=== PATIENT | male | born 1990 | race Two or more races ===

== ENCOUNTER 2024-11-28 10:32 | Inpatient (IN) | payer BC, OTHER ==
[~2024-11-28] VITALS: Ht 170.2 cm; Wt 98.0 kg
--- NOTE | 2024-11-28 10:44 | ECG ---
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
--- NOTE | 2024-11-28 10:48 | ED.PDOC ---
HPI Comments This is a 34 year old male presenting to the ED with chief complaint of chest pain. Patient reports that he has been experiencing pressure-like pain across his chest with associated subjective fever and diaphoresis for the past few days. Patient relays that his pain is not changed by palpation or inspiration. Patient denies any SOB, cough, dizziness, headache, N/V, numbness, or weakness. Chief Complaint: Chest Pain Time Seen by MD: 10:45 Reviewed Notes: Nurses Notes, Medications, Allergies Allergies: Coded Allergies: NO KNOWN ALLERGIES (Unverified , 11/28/24) Information Source: Patient Mode of Arrival: Ambulatory Severity: Moderate Timing: Days Duration: Since onset Prehospital treatment: None Location: Chest (R), Chest (L) Radiation: No Radiation Quality: Pressure Onset: At Rest Cardiac Risk Factors: Smoker PE Risk Factors: None History of: None Associated Signs and Symptoms: Diaphoresis Past Medical History PAST MEDICAL HISTORY: Denies Surgical History: Denies all surgeries Family History Family History: Reviewed,noncontributory to illness Social History Smoker: Quit Less Than 1 Year, Cigarettes Alcohol: Denies ETOH Use Drugs: Denies Drug Use Lives In: Home Constitutional: reports: fever; denies: chills, diaphoresis, fatigue, malaise, sweats, weakness, others EENTM: denies: blurred vision, double vision, ear bleeding, ear discharge, ear drainage, ear pain, ear ringing, eye pain, eye redness, hearing loss, mouth pain, mouth swelling, nasal discharge, nose bleeding, nose congestion, nose pain, photophobia, tearing, throat pain, throat swelling, voice changes, others Respiratory: denies: cough, hemoptysis, orthopnea, SOB at rest, shortness of breath, SOB with excertion, stridor, wheezing, others Cardiovascular: reports: chest pain, diaphoresis; denies: dizzy spells, Dyspnea on exertion, edema, irregular heart beat, left arm pain, lightheadedness, palpitations, PND, syncope, others Gastrointestinal: denies: abdomen distended, abdominal pain, blood streaked bowels, constipated, diarrhea, dysphagia, difficulty swallowing, hematemesis, melena, nausea, poor appetite, poor fluid intake, rectal bleeding, rectal pain, vomiting, others Genitourinary: denies: burning, dysuria, flank pain, frequency, hematuria, incontinence, penile discharge, penile sore, pain, testicle pain, testicle swelling, urgency, others Neurological: denies: dizziness, fainting, headache, left sided numbness, left sided weakness, numbness, paresthesia, pre-existing deficit, right sided numbness, right sided weakness, seizure, speech problems, tingling, tremors, weakness, others Musculoskeletal: denies: back pain, gout, joint pain, joint swelling, muscle pain, muscle stiffness, neck pain, others Integumetry: denies: bruises, change in color, change in hair/nails, dryness, laceration, lesions, lumps, rash, wounds, others Allergic/Immunocompromised: denies: Difficulty Healing, Frequent Infections, Hives, Itching, others Hematologic/Lymphatic: denies: anemia, blood clots, easy bleeding, easy bruising, swollen glands, others Endocrine: denies: excessive hunger, excessive sweating, excessive thirst, excessive urination, flushing, intolerance to cold, intolerance to heat, unexplained weight gain, unexplained weight loss, others Psychiatric: denies: anxiety, bipolar disorder, depression, hopeless, panic disorder, schizophrenia, sleepless, suicidal, others All Other Systems: Reviewed and Negative Physical Exam General Appearance: No Apparent Distress, Normal HEENT: Normal ENT Inspection, Pharynx Normal, TMs Normal Neck: Full Range of Motion, Non-Tender, Normal, Normal Inspection Respiratory: Chest Non-Tender, Lungs Clear, No Accessory Muscle Use, No Respiratory Distress, Normal Breath Sounds Cardiovascular: No Edema, No JVD, No Murmur, No Gallop, Normal Peripheral Pulses, Regular Rate/Rhythm Breast Exam: Deferred Gastrointestinal: No Organomegaly, Non Tender, No Pulsatile Mass, Normal Bowel Sounds, Soft Genitalia: Deferred Pelvic: Deferred Rectal: Deferred Extremities: No calf tenderness, Normal capillary refill, Normal inspection, Normal range of motion, Non-tender, No pedal edema Musculoskeletal : Apperance: Normal Neurologic: Alert, head soft sugar operator II-XII nml as Tested, No Motor Deficits, Normal Affect, Normal Mood, No Sensory Deficits Cerebellar Function: Normal Reflexes: Normal Skin: Diaphoresis, Normal Color, Warm Lymphatic: No Adenopathy EKG EKG : Pulse Rate (adult): 88 Joice: Normal Cardiac Rhythm: NSR Was a procedure done? Was a procedure done?: No CP Differential Dx Differential Diagnosis: Other Differential Diagnosis: Other Differential Diagnosis: Angina, Aortic dissection, Chest Wall Pain, Cholelithiasis, Costochondritis, Esophageal reflux/spasm, Gastritis, Myocardial Infarction, Pericarditis, Pneumonia, Pneumothorax, Pulmonary Embolus X-Ray, Labs, Meds, VS Vital Signs Date Time Temp Pulse Resp B/P (MAP) Pulse Ox O2 Delivery O2 Flow Rate FiO2 11/28/24 11:42 94 11/28/24 11:12 Room Air* 0 21 11/28/24 10:48 88 11/28/24 10:39 88 11/28/24 10:36 98.5 100 16 120/77 100 98.5 Lab Test 11/28/24 12:18 11/28/24 10:40 Range/Units Troponin I High Sensitivity Pending < 3 L </=54 ng/L White Blood Count 6.0 4.4-10.8 10^3/uL Red Blood Count 5.46 4.5-5.90 10^6/uL Hemoglobin 15.8 13.5-17.5 g/dL Hematocrit 46.4 41.0-53.0 % Mean Corpuscular Volume 85.0 80.0-100.0 fL Mean Corpuscular Hemoglobin 29.0 28.0-32.0 pg Mean Corpuscular Hemoglobin Concent 34.1 32.0-36.0 g/dL Red Cell Distribution Width 13.5 11.8-14.3 % Platelet Count 264 140-450 10^3/uL Mean Platelet Volume 7.3 6.9-10.8 fL Neutrophils (%) (Auto) 68.6 37.0-80.0 % Lymphocytes (%) (Auto) 15.5 10.0-50.0 % Monocytes (%) (Auto) 15.0 H 0.0-12.0 % Eosinophils (%) (Auto) 0.4 0.0-7.0 % Basophils (%) (Auto) 0.5 0.0-2.0 % Neutrophils # (Auto) 4.1 1.6-8.6 10 ^3/uL Lymphocytes # (Auto) 0.9 0.4-5.4 10 ^3/uL Monocytes # (Auto) 0.9 0-1.3 10 ^3/uL Eosinophils # (Auto) 0 0-0.8 10 ^3/uL Basophils # (Auto) 0 0-0.2 10 ^3/uL Nucleated Red Blood Cells 0.2 % Sodium Level 140 136-145 mmol/L Potassium Level 4.2 3.5-5.1 mmol/L Chloride Level 102 98-107 mmol/L Carbon Dioxide Level 29 20-31 mmol/L Anion Gap 9 5-15 Blood Urea Nitrogen 16 9-23 mg/dL Creatinine 1.07 0.700-1.30 mg/dL Glomerular Filtration Rate Calc 93 >90 mL/min BUN/Creatinine Ratio 15.0 10.0-20.0 Serum Glucose 122 H 74-106 mg/dL Calcium Level 9.5 8.7-10.4 mg/dL Current Medications Medications (Trade) Dose Ordered Sig/Tea Route Start Time Stop Time Status Last Admin Aspirin 162 mg ONCE ONCE PO 11/28/24 10:45 11/28/24 10:46 DC 11/28/24 11:09 Time of 1ST Reevaluation: 11:45 Reevaluation 1ST: Unchanged Patient Education/Counseling: Diagnosis, Treatment Family Education/Counseling: No Family Present Comments Although the patient has a low heart score of only one, his symptoms are concerning for angina. Patient will be admitted for further evaluation Additional Information Reviewed patient's previous visit(s): None The following tests were ordered, and results were reviewed by me: CBC, BMP, Troponin, EKG Additional information was gathered from interviewing the following independent historian: None I reviewed and agreed with the following test results read by other provider: Chest XR I discussed treatments and results with medical personnel and: PATIENT Comprehensive systems review obtained and negative except for what is stated in the HPI. SEPSIS Sepsis Screen Date sepsis recognized/suspect: Nov 28, 2024 Time Sepsis recognized/suspect: 1038 Recent Procedure: No On Antibiotic Therapy: No Respiratory Rate >20: No Heart Rate >90: Yes Temp<36 C (96.8 F) or >38.3 C: No SBP <90 or MAP <65 mmHG: No New Acute Mental Status Change: No Is the patient on CPAP, BIPAP,: No Physician Orders Electrocardigram (11/28/24 13:43) Chest Xray 1 View (11/28/24 10:44) Continuous Ekg Monitoring 08,12,16,20,00,04 (11/28/24 10:44) Troponin-I Hs (11/28/24 11:44) Troponin-I Hs (11/28/24 13:44) Vital Signs Date Time Temp Pulse Resp B/P (MAP) Pulse Ox O2 Delivery O2 Flow Rate FiO2 11/28/24 11:42 94 11/28/24 11:12 Room Air* 0 21 11/28/24 10:48 88 11/28/24 10:39 88 11/28/24 10:36 98.5 100 16 120/77 100 98.5 Laboratory Tests Test 11/28/24 10:40 White Blood Count 6.0 10^3/uL (4.4-10.8) Medications Medications Dose Ordered Sig/Tea Route Start Time Stop Time Status Last Admin Dose Admin Aspirin 162 mg ONCE ONCE PO 11/28/24 10:45 11/28/24 10:46 DC 11/28/24 11:09 Departure 1 Departure Time of Disposition: 12:41 Impression: Primary Impression: Unstable angina Disposition: ADMITTED INPATIENT Admit to: Tele Condition: Stable Critical Care Note Critical Care Time?: Yes (55 min-critical care time only) Critical care comment: due to concerns for patient's condition deteriorating, the care required my highest level of attention and readiness to intervene. i assessed the patient's condition, ordered the proper tests and treatments, reassessed for response and reviewed the results. i communicated with medical personnel and formulated a plan of care. total critical care time does not include any procedures Stability Stability form required: No Heart Score Heart Score: Heart Score Response (Comments) Value History Moderate Suspicious 1 EKG Normal 0 Age <45 0 Risk Factors No known risk factors 0 Troponin Normal limit 0 Total 1 I personally scribed for LIZZIE HERNANDEZ MD ([email or web address]) on 11/28/24 at 10:48. Electronically submitted by Antoni Fraire ([email or web address]). LIZZIE HERNANDEZ MD Nov 28, 2024 10:48
[2024-11-28 11:01] LABS: Hematocrit 46.4 % (41.0-53.0); Hemoglobin 15.8 g/dL (13.5-17.5); Mean Corpuscular Hemoglobin 29.0 pg (28.0-32.0); Mean Corpuscular Volume 85.0 fL (80.0-100.0); Nucleated Red Blood Cells % 0.2 %
[2024-11-28 11:11] LABS: Chloride 102 mmol/L (98-107); Potassium 4.2 mmol/L (3.5-5.1); Sodium 140 mmol/L (136-145)
--- NOTE | 2024-11-28 11:11 | DVH ---
EXAM: XY CHEST XRAY 1 VIEW Indication: cp Technique: Single frontal view of the chest was obtained Comparison: None FINDINGS: Lines and Tubes: None Lungs: No focal consolidation. Pleura: No effusion. No pneumothorax. Cardiomediastinal contours: Unremarkable Bones: No acute osseous abnormality. IMPRESSION: No acute cardiopulmonary disease.
[2024-11-28 11:12] LABS: Anion Gap 9 (5-15); Calcium 9.5 mg/dL (8.7-10.4); Carbon Dioxide 29 mmol/L (20-31)
[2024-11-28 11:17] LABS: BUN/Creatinine Ratio 15.0 (10.0-20.0); Blood Urea Nitrogen 16 mg/dL (9-23)
[2024-11-28 11:23] LABS: Glucose 122 mg/dL (74-106)
--- NOTE | 2024-11-28 11:44 | ECG ---
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
[2024-11-28] MEDS ORDERED: TEMAZEPAM 15 MG CAP PO PRN ×2 (14:00→22:00)
[2024-11-28] MEDS ORDERED: ONDANSETRON HCL 4 MG/2 ML VIAL IV PRN (14:00)
[2024-11-28] MEDS ORDERED: MORPHINE SULFATE INJ 2 MG/ml SYRG IV PRN (14:00)
[2024-11-28] MEDS ORDERED: ACETAMINOPHEN 325 MG TAB PO PRN (14:00)
[2024-11-28] MEDS ORDERED: HYDROcodone-ACET 5/325MG TAB PO PRN (14:00)
[2024-11-28] MEDS ORDERED: DOCUSATE SOD 100 MG CAP PO PRN (14:00)
[2024-11-28] MEDS ORDERED: NITROGLYCERIN 0.4 MG SL TAB SL PRN (14:00)
[2024-11-28] MEDS: SODIUM CHLOR 0.9% PF (SALINE LOCK) 10ML VIAL/SYR IV SCH (14:23)
--- NOTE | 2024-11-28 15:26 | DVHHP2 ---
History of Present Illness Reason for Visit: Chest pain History of Present Illness Jani Vasquez is a 34-year old male with no significant past medical history who came to the hospital for chest pain. Patient states his chest pain began about a week ago. It started on the right side of his chest and now is across his entire chest. States it feels heavy when he breaths. Patient did quite smoking about 1 month ago, denies any cough at this time. Past Surgical History: Hernia Repair Smoke: Quit (1 month ago) ALCOHOL: none Drugs: None Lives: with Family Domestic Violence: Neg Review of Systems Constitutional: No: Fever, Chills, Sweats, Weakness, Malaise, Other Eyes: No: Pain, Vision change, Conjunctivae inflammation, Eyelid inflammation, Other, Redness ENT: No: Ear pain, Ear discharge, Nose pain, Nose discharge, Nose congestion, Mouth pain, Mouth swelling, Throat pain, Throat swelling, Other Respiratory: No: Cough, Dry, Shortness of breath, SOB with excertion, Wheezing, Hemoptysis, Pleuritic Pain, Sputum, Wheezing, Other Cardiovascular: Chest Pain (Started on the right side of his chest and radiates to left. Feels heavy when he breaths); No: Palpitations, Orthopnea, Paroxysmal Noc. Dyspnea, Edema, Lt Headedness, Other Gastrointestinal: No: Nausea, Vomiting, Abdominal Pain, Diarrhea, Constipation, Melena, Hematochezia, Other Genitourinary: No Dysuria, No Frequency, No Incontinence, No Hematuria, No Retention, No Other Musculoskeletal: No: other, neck pain, shoulder pain, arm pain, back pain, hand pain, leg pain, foot pain Skin: No: Rash, Lesions, Jaundice, Bruising, Other Neurological: No: Weakness, Numbness, Incoordination, Change in speech, Confusion, Seizures, Other Allergies: Coded Allergies: NO KNOWN ALLERGIES (Unverified , 11/28/24) Medications Current Medications Medications Dose Ordered Sig/Tea Route Start Time Stop Time Status Last Admin Dose Admin Sodium Chloride 10 ml Q8HR IV 11/28/24 14:00 UNV Acetaminophen/ Hydrocodone Bitart 1 tab Q4HP PRN PO 11/28/24 14:00 UNV Temazepam 15 mg QHSP PRN PO 11/28/24 14:00 UNV Ondansetron HCl 4 mg Q4HP PRN IV 11/28/24 14:00 UNV Docusate Sodium 100 mg BIDPRN PRN PO 11/28/24 14:00 UNV Acetaminophen 650 mg Q6HP PRN PO 11/28/24 14:00 UNV Nitroglycerin 0.4 mg Q5MINP PRN SL 11/28/24 14:00 UNV Morphine Sulfate 2 mg Q30M PRN IV 11/28/24 14:00 UNV Exam Vital Signs Vital Signs Date Time Temp Pulse Resp B/P (MAP) Pulse Ox O2 Delivery O2 Flow Rate FiO2 11/28/24 11:42 94 11/28/24 11:12 Room Air* 0 21 11/28/24 10:36 98.5 16 120/77 100 98.5 General Appearance: Alert, Oriented X3, Cooperative, mild distress HEENT: Atraumatic, PERRLA Respiratory: Clear to auscultation, Normal air movement Cardiovascular: Regular rate, Normal S1, Normal S2, No murmurs Abdominal: Normal bowel sounds, Soft, No tenderness Extremities: No clubbing, No edema Skin: No rashes, No breakdown, No significant lesion Neuro: Normal gait, Normal speech, Strength at 5/5 X4 ext, Normal tone Psych/Mental Status: Mental status NL, Mood NL Labs/Xrays Labs Test 11/28/24 12:18 11/28/24 10:40 Range/Units Troponin I High Sensitivity < 3 L </=54 ng/L White Blood Count 6.0 4.4-10.8 10^3/uL Red Blood Count 5.46 4.5-5.90 10^6/uL Hemoglobin 15.8 13.5-17.5 g/dL Hematocrit 46.4 41.0-53.0 % Mean Corpuscular Volume 85.0 80.0-100.0 fL Mean Corpuscular Hemoglobin 29.0 28.0-32.0 pg Mean Corpuscular Hemoglobin Concent 34.1 32.0-36.0 g/dL Red Cell Distribution Width 13.5 11.8-14.3 % Platelet Count 264 140-450 10^3/uL Mean Platelet Volume 7.3 6.9-10.8 fL Neutrophils (%) (Auto) 68.6 37.0-80.0 % Lymphocytes (%) (Auto) 15.5 10.0-50.0 % Monocytes (%) (Auto) 15.0 H 0.0-12.0 % Eosinophils (%) (Auto) 0.4 0.0-7.0 % Basophils (%) (Auto) 0.5 0.0-2.0 % Neutrophils # (Auto) 4.1 1.6-8.6 10 ^3/uL Lymphocytes # (Auto) 0.9 0.4-5.4 10 ^3/uL Monocytes # (Auto) 0.9 0-1.3 10 ^3/uL Eosinophils # (Auto) 0 0-0.8 10 ^3/uL Basophils # (Auto) 0 0-0.2 10 ^3/uL Nucleated Red Blood Cells 0.2 % Sodium Level 140 136-145 mmol/L Potassium Level 4.2 3.5-5.1 mmol/L Chloride Level 102 98-107 mmol/L Carbon Dioxide Level 29 20-31 mmol/L Anion Gap 9 5-15 Blood Urea Nitrogen 16 9-23 mg/dL Creatinine 1.07 0.700-1.30 mg/dL Glomerular Filtration Rate Calc 93 >90 mL/min BUN/Creatinine Ratio 15.0 10.0-20.0 Serum Glucose 122 H 74-106 mg/dL Calcium Level 9.5 8.7-10.4 mg/dL EXAM: XY CHEST XRAY 1 VIEW FINDINGS: Lines and Tubes: None Lungs: No focal consolidation. Pleura: No effusion. No pneumothorax. Cardiomediastinal contours: Unremarkable Bones: No acute osseous abnormality. IMPRESSION: No acute cardiopulmonary disease. SEPSIS Sepsis Screen Date sepsis recognized/suspect: Nov 28, 2024 Time Sepsis recognized/suspect: 1038 Recent Procedure: No On Antibiotic Therapy: No Respiratory Rate >20: No Heart Rate >90: Yes Temp<36 C (96.8 F) or >38.3 C: No SBP <90 or MAP <65 mmHG: No New Acute Mental Status Change: No Is the patient on CPAP, BIPAP,: No Physician Orders Electrocardigram (11/28/24 13:43) Chest Xray 1 View (11/28/24 10:44) Continuous Ekg Monitoring 08,12,16,20,00,04 (11/28/24 10:44) Troponin-I Hs (11/28/24 13:44) Admit (11/28/24 13:56) Code Status (11/28/24 13:56) 2 Gm Sodium Diet (11/28/24 Dinner) Sodium Chloride Lock (Saline Lock Ns) (11/28/24 14:00) Hydrocodone-Acet 5/325mg Tab ([place] 5/32 (11/28/24 14:00) Temazepam (Restoril) (11/28/24 14:00) Ondansetron Hcl (Zofran) (11/28/24 14:00) Docusate Sodium Capsule (Colace Capsule) (11/28/24 14:00) Complete Blood Count (11/29/24 04:00) Comprehensive Metabolic Panel (11/29/24 04:00) Echo 2d Mode Cardiac Dop (11/28/24 13:56) Condition: Serious (11/28/24 13:56) Acetaminophen Tablet (Tylenol Tablet) (11/28/24 14:00) Nitroglycerin Sublingual (Ntrostat Subli (11/28/24 14:00) Morphine Sulfate Injection (11/28/24 14:00) Stat Ekg For Chest Pain (11/28/24 13:56) Notify Md Of Changes From Base (11/28/24 13:56) Orthotist For 24 Hours (11/28/24 13:56) Emergency Dysrhythmia Protocol (11/28/24 13:56) Rhythm Strips Once Every Shift (11/28/24 13:56) Oxygen By Nasal Cannula (11/28/24 13:56) Vital Signs Date Time Temp Pulse Resp B/P (MAP) Pulse Ox O2 Delivery O2 Flow Rate FiO2 11/28/24 11:42 94 11/28/24 11:12 Room Air* 0 21 11/28/24 10:48 88 11/28/24 10:39 88 11/28/24 10:36 98.5 100 16 120/77 100 98.5 Laboratory Tests Test 11/28/24 10:40 White Blood Count 6.0 10^3/uL (4.4-10.8) Medications Medications Dose Ordered Sig/Tea Route Start Time Stop Time Status Last Admin Dose Admin Aspirin 162 mg ONCE ONCE PO 11/28/24 10:45 11/28/24 10:46 DC 11/28/24 11:09 162 MG Assessment/Plan Assessment/Plan Assessment: Unstable angina, Hyperglycemia, Plan: Admit to Tele, ECHO, Consider cardiology consult based on ECHO results and if symptoms worsen, D-dimer, TSH, Lipid panel, A1c, Plan discussed with: Patient My Orders Orders - MIKE ARNETT Procedure Category Date Status Time Admit ADMIT 11/28/24 Transmitted 13:56 Code Status CODE 11/28/24 Transmitted 13:56 2 Gm Sodium Diet DIET 11/28/24 Transmitted Dinner Sodium Chloride Lock PHA 11/28/24 Logged (Saline Lock Ns) 14:00 Hydrocodone-Acet PHA 11/28/24 Logged 5/325mg Tab ([place] 14:00 Temazepam (Restoril) PHA 11/28/24 Logged 14:00 Ondansetron Hcl PHA 11/28/24 Logged (Zofran) 14:00 Docusate Sodium PHA 11/28/24 Logged Capsule (Colace 14:00 Complete Blood Count LAB 11/29/24 Verified 04:00 Comprehensive LAB 11/29/24 Verified Metabolic Panel 04:00 Echo 2d Mode Cardiac US 11/28/24 Logged DOP 13:56 Condition: Serious DARRON 11/28/24 In Process 13:56 Acetaminophen Tablet PHA 11/28/24 Logged (Tylenol Tablet) 14:00 Nitroglycerin PHA 11/28/24 Logged Sublingual (Ntrostat 14:00 Morphine Sulfate PHA 11/28/24 Logged Injection 14:00 Stat Ekg For Chest DARRON 11/28/24 In Process Pain 13:56 Notify Md Of Changes D[place]ON 11/28/24 In Process From Base 13:56 Orthotist For DARRON 11/28/24 In Process 24 Hours 13:56 Emergency Dysrhythmia DARRON 11/28/24 In Process Protocol 13:56 Rhythm Strips Once DARRON 11/28/24 In Process Every Shift 13:56 Oxygen By Nasal RT 11/28/24 Transmitted Cannula 13:56 Date of Service: Nov 28, 2024 Billing Provider: MIKE ARNETT Common Visit Codes: 40202-OCRZYPT INP/OBS CARE (MOD) MIKE ARNETT Nov 28, 2024 15:26
[2024-11-28 17:00] VITALS: BP 133/85; PULSE 81; RESP 22; TEMP 98.4; O2SAT 99
[2024-11-28 21:00] VITALS: BP 104/71; PULSE 79; RESP 16; TEMP 98; O2SAT 98
[2024-11-28 22:10] VITALS: PULSE 72; RESP 18; O2SAT 98
[2024-11-29] VITALS (8 sets, daily range): BP systolic 104–126; BP diastolic 69–87; PULSE 65–86; RESP 18–20; TEMP 97.5–98.3; O2SAT 94–100
[2024-11-29 07:13] LABS: Hematocrit 45.2 % (41.0-53.0); Hemoglobin 15.5 g/dL (13.5-17.5); Mean Corpuscular Hemoglobin 29.5 pg (28.0-32.0); Mean Corpuscular Volume 85.8 fL (80.0-100.0); Nucleated Red Blood Cells % 0.2 %
[2024-11-29 07:33] LABS: Alanine Aminotransferase 16 U/L (7-40); Alkaline Phosphatase 74 U/L (46-116); Anion Gap 10 (5-15); BUN/Creatinine Ratio 11.0 (10.0-20.0); Blood Urea Nitrogen 9 mg/dL (9-23); Calcium 9.0 mg/dL (8.7-10.4); Carbon Dioxide 24 mmol/L (20-31); Chloride 105 mmol/L (98-107); Glucose 88 mg/dL (74-106); Potassium 4.3 mmol/L (3.5-5.1); Sodium 139 mmol/L (136-145); Total Protein 7.4 g/dL (5.7-8.2)
[2024-11-29 07:35] LABS: Albumin 4.7 g/dL (3.2-4.8); Bilirubin, Total 0.5 mg/dL (0.2-1.0)
[2024-11-29 10:39] LABS: Triglycerides 112 mg/dL (< 150)
[2024-11-29 10:41] LABS: Cholesterol 159 mg/dL (< 200); HDL Cholesterol 36 mg/dL (40-59)
--- NOTE | 2024-11-29 17:55 | DVHPN2 ---
Eyes: No Pain, No Vision change, No Conjunctivae inflammation, No Eyelid inflammation, No Other, No Redness ENT: No Ear pain, No Ear discharge, No Nose pain, No Nose discharge, No Nose congestion, No Mouth pain, No Mouth swelling, No Throat pain, No Throat swelling, No Other Cardiovascular: Chest Pain (Started on the right side of his chest and radiates to left. Feels heavy when he breaths); No Palpitations, No Orthopnea, No Paroxysmal Noc. Dyspnea, No Edema, No Lt Headedness, No Other Respiratory: No Cough, No Dry, No Shortness of breath, No SOB with excertion, No Wheezing, No Hemoptysis, No Pleuritic Pain, No Sputum, No Other Gastrointestinal: No Nausea, No Vomiting, No Abdominal Pain, No Diarrhea, No Constipation, No Melena, No Hematochezia, No Other Genitourinary: No Dysuria, No Frequency, No Incontinence, No Hematuria, No Retention, No Other Musculoskeletal: No other, No neck pain, No shoulder pain, No arm pain, No back pain, No hand pain, No leg pain, No foot pain Skin: No Rash, No Lesions, No Jaundice, No Bruising, No Other Objective Vitals Vital Signs Date Time Temp Pulse Resp B/P (MAP) Pulse Ox O2 Delivery O2 Flow Rate FiO2 11/29/24 13:00 98.1 86 20 117/83 (94) 96 98.1 11/29/24 08:00 Room Air* 0 21 Intake/Output Intake and Output 11/29/24 07:00 Intake Total 940 ml Balance 940 ml Intake Oral 940 ml # Voids 1 Medications Current Medications Medications Dose Ordered Sig/Tea Route Start Time Stop Time Status Last Admin Dose Admin Sodium Chloride 10 ml Q8HR IV 11/28/24 14:00 11/29/24 05:26 10 ML Acetaminophen/ Hydrocodone Bitart 1 tab Q4HP PRN PO 11/28/24 14:00 Ondansetron HCl 4 mg Q4HP PRN IV 11/28/24 14:00 Docusate Sodium 100 mg BIDPRN PRN PO 11/28/24 14:00 Acetaminophen 650 mg Q6HP PRN PO 11/28/24 14:00 Nitroglycerin 0.4 mg Q5MINP PRN SL 11/28/24 14:00 Morphine Sulfate 2 mg Q30M PRN IV 11/28/24 14:00 Temazepam 15 mg QHSP PRN PO 11/28/24 22:00 Laboratory Results Laboratory Tests 11/29/24 06:23 Chemistry Test 11/29/24 06:23 Albumin 4.7 g/dL (3.2-4.8) Calcium Level 9.0 mg/dL (8.7-10.4) Total Protein 7.4 g/dL (5.7-8.2) Lipid panel Test 11/29/24 10:15 Cholesterol Level 159 mg/dL (< 200) HDL Cholesterol 36 mg/dL (40-59) L Triglycerides Level 112 mg/dL (< 150) LFT Test 11/29/24 06:23 Alanine Aminotransferase (ALT) 16 U/L (7-40) Alkaline Phosphatase 74 U/L (46-116) Aspartate Amino Transferase (AST) 21 U/L (13-40) Total Bilirubin 0.5 mg/dL (0.2-1.0) HgA1c, TSH Test 11/29/24 10:15 Hemoglobin A1c 5.4 % A1C (<5.7) Thyroid Stimulating Hormone (TSH) 1.55 uIU/mL (0.55-4.78) Assessment/Plan My Orders Orders - NU BURKETT MD Procedure Category Date Status Time * Cardiology Consult CONS 11/29/24 Transmitted 15:57 NU BURKETT MD Nov 29, 2024 17:55
[2024-11-30 05:00] VITALS: BP 107/69; PULSE 86; RESP 18; TEMP 97.9; O2SAT 95
[2024-11-30 08:00] VITALS: PULSE 76
[2024-11-30 09:00] VITALS: BP 117/75; PULSE 96; RESP 18; TEMP 97.7; O2SAT 97
--- NOTE | 2024-11-30 09:39 | DVHSR ---
APPROVED REPORT EXAM: Two-dimensional and M-mode echocardiogram with Doppler and color Doppler. Blood Pressure: 118/80 mmHg INDICATION unstable angina RISK FACTORS Height: 5'8, Weight: 226 DIMENSIONS LVDd4.8 (3.8-5.7cm)LA (2D)3.6 (1.9-4.0cm)Aortic Root3.6 (2.0-3.7cm) LVDs2.7 (2.5-4.0cm)LA (MM) (1.9-4.0cm)Aortic Cusp Exc2.3 (1.5-2.0cm) EF (%) 60.0 (55-70%)Rt. Atrium3.3 (1.9-4.0cm)Asc. Aorta3.6 cm IVSd1.0 (0.7-1.1cm)RV (D) (1.8-2.4cm) PWd0.9 (0.7-1.1cm) Mitral Valve MitralMitral Stenosis E wave0.57m/sMV Mean GR.mmHg A wave0.70m/sMV Peak GR.mmHg E/A ratio0.82D MVAcm2 DECEL [id number] 1/2 Timems Aortic Valve Aortic ValveAortic Stenosis V10.80m/Mayuri Mean GR.mmHg V20.85m/Mayuri Peak GR.3mmHg LVOT Diameter2.5 (1.8-2.4cm)Doppler AVA4.62cm2 Pulmonic Valve V20.83m/s Tricuspid Valve TR Velocity1.62m/s [id number] Conclusion LV EF IS 70% NORMAL VALVES NORMAL RV FUNCTION NO EFFUSION
[2024-11-30 09:50] LABS: Cannabinoid Screen, Urine Pos (NEGATIVE)
[2024-11-30 09:51] LABS: Amphetamine Screen, Urine Neg (NEGATIVE); Barbiturate Scree,Urine Neg (NEGATIVE); Benzodiazephine Screen, Urine Neg (NEGATIVE); Cocaine Screen, Urine Neg (NEGATIVE); Opiate Scree,Urine Neg (NEGATIVE); Phencyclidine Screen, Urine Neg (NEGATIVE)
--- NOTE | 2024-11-30 11:54 | DVHINCON2 ---
Date Seen: Nov 30, 2024 Referring Physician MD Angélica Reason for Consultation Chest pain History of Present Illness This is a 34-year-old male patient who presents to the emergency room with chief complaint of chest pain. The patient reports that the chest pain began approximately one week ago while he was at work. He states that he was lifting a heavy piece of wooden material over his head when suddenly he began to feel right-sided chest pain. He describes it as provoked with movement, intermittent, sore in nature, and right-sided without radiation. He denies any associated symptoms. He decided to come to the emergency room for further evaluation. Initial twelve lead electrocardiogram reveals normal sinus rhythm without any significant ST segment changes. Troponin levels have been negative. The patient denies any previous medical history. The patient also denies any significant family cardiac history. Past Medical History Denies any past medical history Past Surgical History Hernia repair Family History: Patient reports no known family medical history. Family History Family history reviewed. Social History Admits to occasional marijuana use, denies other illicit drugs Denies nicotine or tobacco use Denies alcohol use Allergies: Coded Allergies: NO KNOWN ALLERGIES (Unverified , 11/28/24) Home Meds No Active Prescriptions or Reported Meds Home Meds Denies taking any prescribed medications Review of Systems Constitutional: No symptom reported Ears, Nose, & Throat: No symptom reported Eyes: No symptom reported Neurological: No symptoms reported Pulmonary/Respiratory: No symptoms reported Cardiovascular: Chest pain Gastrointestinal: No symptom reported Genitourinary: No symptom reported Musculoskeletal: No symptom reported Skin: No symptom reported Psychiatric: No symptom reported Endocrine: No symptom reported Hematologic/Lymphatic: No symptom reported Vital Signs Vital Signs Date Time Temp Pulse Resp B/P (MAP) Pulse Ox O2 Delivery O2 Flow Rate FiO2 11/30/24 09:00 97.7 96 18 117/75 (89) 97 97.7 11/29/24 20:00 Room Air* 0 21 Physical Exam General Appearance: Cooperative. Obese Pulmonary/Respiratory: Clear, bilateral breaths sounds. Cardiovascular/Chest: Regular rate and rhythm. Peripheral Pulses: 2+ Radial (R). 2+ Radial (L). 2+ Pedal (R). 2+ Pedal (L) Abdominal Exam: Normal bowel sounds. Ankle Exam: Negative ankle edema Lower extremities: Negative lower extremity edema Neuro/Mental Status: A/OX4, coherent. Thoughts/Psych: Normal thought pattern. Appropriate mood and affect. Good judgment and insight. Appearance: No acute distress. Skin Exam: Normal inspection. Normal color. Warm and dry. Labs/Diagnostic Data Labs Test 11/30/24 08:00 11/29/24 10:15 11/29/24 06:23 11/28/24 12:18 Range/Units Urine Opiates Screen Neg NEGATIVE Urine Fentanyl Screen Neg NEGATIVE Urine Barbiturates Screen Neg NEGATIVE Urine Phencyclidine Screen Neg NEGATIVE Urine Amphetamines Screen Neg NEGATIVE Urine Benzodiazepines Screen Neg NEGATIVE Urine Cocaine Screen Neg NEGATIVE Urine Cannabinoids Screen Pos NEGATIVE Hemoglobin A1c 5.4 <5.7 % A1C Triglycerides Level 112 < 150 mg/dL Cholesterol Level 159 < 200 mg/dL LDL Cholesterol 111 H < 100 mg/dL HDL Cholesterol 36 L 40-59 mg/dL Thyroid Stimulating Hormone (TSH) 1.55 0.55-4.78 uIU/mL White Blood Count 6.9 4.4-10.8 10^3/uL Red Blood Count 5.27 4.5-5.90 10^6/uL Hemoglobin 15.5 13.5-17.5 g/dL Hematocrit 45.2 41.0-53.0 % Mean Corpuscular Volume 85.8 80.0-100.0 fL Mean Corpuscular Hemoglobin 29.5 28.0-32.0 pg Mean Corpuscular Hemoglobin Concent 34.4 32.0-36.0 g/dL Red Cell Distribution Width 13.9 11.8-14.3 % Platelet Count 247 140-450 10^3/uL Mean Platelet Volume 7.6 6.9-10.8 fL Neutrophils (%) (Auto) 56.8 37.0-80.0 % Lymphocytes (%) (Auto) 23.5 10.0-50.0 % Monocytes (%) (Auto) 17.7 H 0.0-12.0 % Eosinophils (%) (Auto) 1.2 0.0-7.0 % Basophils (%) (Auto) 0.8 0.0-2.0 % Neutrophils # (Auto) 3.9 1.6-8.6 10 ^3/uL Lymphocytes # (Auto) 1.6 0.4-5.4 10 ^3/uL Monocytes # (Auto) 1.2 0-1.3 10 ^3/uL Eosinophils # (Auto) 0.1 0-0.8 10 ^3/uL Basophils # (Auto) 0.1 0-0.2 10 ^3/uL Nucleated Red Blood Cells 0.2 % Sodium Level 139 136-145 mmol/L Potassium Level 4.3 3.5-5.1 mmol/L Chloride Level 105 98-107 mmol/L Carbon Dioxide Level 24 20-31 mmol/L Anion Gap 10 5-15 Blood Urea Nitrogen 9 9-23 mg/dL Creatinine 0.82 0.700-1.30 mg/dL Glomerular Filtration Rate Calc 117 >90 mL/min BUN/Creatinine Ratio 11.0 10.0-20.0 Serum Glucose 88 74-106 mg/dL Calcium Level 9.0 8.7-10.4 mg/dL Total Bilirubin 0.5 0.2-1.0 mg/dL Aspartate Amino Transferase (AST) 21 13-40 U/L Alanine Aminotransferase (ALT) 16 7-40 U/L Alkaline Phosphatase 74 46-116 U/L Total Protein 7.4 5.7-8.2 g/dL Albumin 4.7 3.2-4.8 g/dL Troponin I High Sensitivity < 3 L </=54 ng/L Test 11/28/24 10:40 Range/Units D-Dimer, Quantitative < 0.19 0.0-0.49 mg/L FEU Assessment Chest pain, likely musculoskeletal Hyperlipidemia, newly diagnosed Marijuana use Obese Plan/Recommendation We will continue with the following plan/recommendations (Dr. Dietrich): A transthoracic echocardiogram reveals an EF of 70% without any wall motion abnormalities. Given patient's clinical presentation, negative troponin level, unremarkable twelve lead electrocardiogram, and low HEART score, doubt ACS. The patient reports symptoms started after lifting a heavy wooden object over his he ad. Symptoms have subsided at time of assessment and the patient denies any current symptoms. Patient noted to have mildly elevated LDL level. Given patient age and ASCVD scoring, no statin therapy recommended at this time. Patient should initiate dietary and lifestyle changes. There is no further inpatient cardiac workup indicated at this time. Thank you for allowing us to c are for this patient. Please call with any questions or concerns. Critical care time spent: 44 minutes This medical document was created using an electronic medical record system with voice recognition software and computerized dictation system. Although this document has been carefully reviewed, there might still be some phonetic and typographical errors. Occasional wrong-word or ``sound-alike substitutions may have occurred due to the inherent limitations of voice recognition software. These areas are purely typographical due to imperfections of the software programs and do not reflect any compromise in the patient's medical care. Please read the chart carefully and recognize, using context, where these substitutions have occurred. Plan discussed with: Patient, Spouse NYHA Physical activity limitations: NA Date of Service: Nov 30, 2024 Billing Provider: RADHA KESSLER Cardiology Common Codes: 94561-CDYTTQF INP/OBS CARE (High) Cardiology Consultation Codes: 68439-[id number] CONSULT <45MIN RADHA KESSLER Nov 30, 2024 11:54
[2024-11-30 13:00] VITALS: BP 130/84; PULSE 83; RESP 18; TEMP 98.2; O2SAT 99
--- NOTE | 2024-11-30 15:35 | DVHDS2 ---
Discharge Summary Date of Admission Nov 28, 2024 at 13:56 Date of Discharge: Nov 30, 2024 Labs/Diagnostic Data: Laboratory Results Test 11/30/24 08:00 11/29/24 10:15 11/29/24 06:23 11/28/24 12:18 Urine Opiates Screen Neg (NEGATIVE) Urine Fentanyl Screen Neg (NEGATIVE) Urine Barbiturates Screen Neg (NEGATIVE) Urine Phencyclidine Screen Neg (NEGATIVE) Urine Amphetamines Screen Neg (NEGATIVE) Urine Benzodiazepines Screen Neg (NEGATIVE) Urine Cocaine Screen Neg (NEGATIVE) Urine Cannabinoids Screen Pos (NEGATIVE) Hemoglobin A1c 5.4 % A1C (<5.7) Triglycerides Level 112 mg/dL (< 150) Cholesterol Level 159 mg/dL (< 200) LDL Cholesterol 111 mg/dL (< 100) HDL Cholesterol 36 mg/dL (40-59) Thyroid Stimulating Hormone (TSH) 1.55 uIU/mL (0.55-4.78) White Blood Count 6.9 10^3/uL (4.4-10.8) Red Blood Count 5.27 10^6/uL (4.5-5.90) Hemoglobin 15.5 g/dL (13.5-17.5) Hematocrit 45.2 % (41.0-53.0) Mean Corpuscular Volume 85.8 fL (80.0-100.0) Mean Corpuscular Hemoglobin 29.5 pg (28.0-32.0) Mean Corpuscular Hemoglobin Concent 34.4 g/dL (32.0-36.0) Red Cell Distribution Width 13.9 % (11.8-14.3) Platelet Count 247 10^3/uL (140-450) Mean Platelet Volume 7.6 fL (6.9-10.8) Neutrophils (%) (Auto) 56.8 % (37.0-80.0) Lymphocytes (%) (Auto) 23.5 % (10.0-50.0) Monocytes (%) (Auto) 17.7 % (0.0-12.0) Eosinophils (%) (Auto) 1.2 % (0.0-7.0) Basophils (%) (Auto) 0.8 % (0.0-2.0) Neutrophils # (Auto) 3.9 10 ^3/uL (1.6-8.6) Lymphocytes # (Auto) 1.6 10 ^3/uL (0.4-5.4) Monocytes # (Auto) 1.2 10 ^3/uL (0-1.3) Eosinophils # (Auto) 0.1 10 ^3/uL (0-0.8) Basophils # (Auto) 0.1 10 ^3/uL (0-0.2) Nucleated Red Blood Cells 0.2 % Sodium Level 139 mmol/L (136-145) Potassium Level 4.3 mmol/L (3.5-5.1) Chloride Level 105 mmol/L (98-107) Carbon Dioxide Level 24 mmol/L (20-31) Anion Gap 10 (5-15) Blood Urea Nitrogen 9 mg/dL (9-23) Creatinine 0.82 mg/dL (0.700-1.30) Glomerular Filtration Rate Calc 117 mL/min (>90) BUN/Creatinine Ratio 11.0 (10.0-20.0) Serum Glucose 88 mg/dL (74-106) Calcium Level 9.0 mg/dL (8.7-10.4) Total Bilirubin 0.5 mg/dL (0.2-1.0) Aspartate Amino Transferase (AST) 21 U/L (13-40) Alanine Aminotransferase (ALT) 16 U/L (7-40) Alkaline Phosphatase 74 U/L (46-116) Total Protein 7.4 g/dL (5.7-8.2) Albumin 4.7 g/dL (3.2-4.8) Troponin I High Sensitivity < 3 ng/L (</=54) Test 11/28/24 10:40 D-Dimer, Quantitative < 0.19 mg/L FEU (0.0-0.49) Other Laboratory Tests 11/29/24 06:23 Brief Hx & Hospital Course: 34-year-old male with a no significant past medical history with a previous history of tobacco use disorder presented to the hospital with chest pain which started on the right side ready to left. Eventually patient was admitted on telemetry cardiology was consulted. HEENT patient 2D echo was unremarkable. Patient troponins are negative. Patient chest pain is suspected musculoskeletal/costochondritis currently stable to be discharged. Condition at Discharge: Stable Final Diagnosis/Problems List 1. Chest pain ruled out VT 3. Costochondritis 3. Previous history of tobacco use disorder Discharge Disposition: Home SNF Discharge Will this Physician continue t: No Discharge Instruct/Medications Diet: Cardiac 2g Na,low cholest Activity: No Restrictions, As Tolerated Follow Up/Referral: Follow up with the PCP in 1-2 weeks Medications: Resume home medications. No Active Prescriptions or Reported Meds Discharge Statement: "Patient was advised to return to the ER or call 911 if any headaches, dizziness, shortness of breath, chest pain, abdominal pain, bleeding, fevers, or worsening of medical condition. Patient was counseled about treatment plan, medications, possible side effects, patientverbalized understanding. All questions were answered to the best of my ability. This discharge took greater then 30 minutes in planning, reviewing documentation, counseling the patient, and discussing with other team members." ASSESSMENT ASSESSMENT Assessment 1. Chest pain ruled out VT 3. Costochondritis 3. Previous history of tobacco use disorder Date of Service: Nov 30, 2024 Billing Provider: NU BURKETT MD Common Visit Codes: 83195-GVX/OBS DISCH DAY >30min NU BURKETT MD Nov 30, 2024 15:35
[2024-11-30 16:21] VITALS: BP 109/76; PULSE 78; RESP 20; TEMP 98.4; O2SAT 97
== END 2024-11-30 17:45 | disposition home or self-care (01) | DRG 206 ==
LOC: ER 10:32 → OVERFLOW 13:56 → TELE-WESTW 22:04
PROVIDERS: ADMIT Internal Medicine; ATTEND Internal Medicine
DX: M94.0 Chondrocostal junction syndrome [Tietze] (principal); I20.0 Unstable angina; R73.9 Hyperglycemia, unspecified; E78.5 Hyperlipidemia, unspecified; F12.90 Cannabis use, unspecified, uncomplicated; E66.9 Obesity, unspecified; Z87.891 Personal history of nicotine dependence; Z68.33 Body mass index [BMI] 33.0-33.9, adult
CPT/HCPCS: 36415; 71045; 80048; 80053; 80061; 80307; 83036; 84443; 84484; 85025; 85379; 93005; 93306; 99291; G0378